=== PATIENT | male | born 1985 | race American Indian/Alaskan Native ===

== ENCOUNTER 2016-03-28 19:25 | Emergency (ER) | payer OTHER ==
--- NOTE | 2016-03-28 20:16 | Emergency Department Report ---
Chief Complaint: Allergic Reaction Stated Complaint: SWOLLEN LIPS, HIVES Time Seen by Provider: 03/28/16 20:11 - HPI History of Present Illness: Patient is a 30 y/o male who presents due to upper lip swelling x 4 hours and hives x 4 days. Patient denies any SOB. Patient denies any insect bite, he states that he ate [employer] for lunch but had eaten [employer] in the past. Patient states that he took Benadryl last night for the hives. NKDA - ROS Review of Systems: SEE HPI - Exam Vital Signs: Vital Signs 03/28/16 20:04 Temperature 98.3 F Pulse Rate 71 Blood Pressure 146/105 O2 Sat by Pulse 100 Oximetry Physical Exam: UPPER LIP SWELLING, WHELPS ON ARM, HANDS AND LEGS. MSE screening note: Focused history and physical exam performed. Due to findings the following was ordered: ED Disposition for MSE Condition: Stable
[2016-03-28] MEDS ORDERED: BENADRYL IV ONE (20:49)
[2016-03-28] MEDS ORDERED: PEPCID IV ONE (20:49)
--- NOTE | 2016-03-28 20:52 | Emergency Department Report ---
HPI - General Chief Complaint: Allergic Reaction Time Seen by Provider: 03/28/16 20:48 - HPI HPI: This is a 30-year-old Afro-[place] male who presents to the emergency department with complaint of a probable allergic reaction. The patient has been having some rash that appears consistent with urticaria that has been going on for the past 4-5 days, and then today the patient began having swelling of his upper lip that is worse on the right side. He denies any involvement of the tongue or throat. He is taken 1 dose of Benadryl each day since the rash began. The hives have been on the legs and arms but do not involve the abdomen or chest or back. He is unsure of any particular etiology but says it could have been new detergent. He has a primary care in [place]. No recent significant travel or sick contacts at home. He denies any past medical history. ED Past Medical Hx - Past Medical History Previous Medical History?: No - Surgical History Past Surgical History?: Yes Additional Surgical History: surgery to left leg - Medications Home Medications: Home Medications Medication Instructions Recorded Confirmed Last Taken Type Famotidine [Pepcid] 20 mg PO BID #10 tablet 03/28/16 Unknown Rx predniSONE [Deltasone] 20 mg PO BID #10 tablet 03/28/16 Unknown Rx ED Review of Systems ROS: Stated complaint: SWOLLEN LIPS, HIVES Other details as noted in HPI Comment: All other systems reviewed and negative Constitutional: denies: chills, fever Eyes: denies: eye pain, eye discharge, vision change ENT: other (angioedema of the lip). denies: ear pain, throat pain Respiratory: denies: cough, shortness of breath, wheezing Cardiovascular: denies: chest pain, palpitations Gastrointestinal: denies: abdominal pain, nausea, diarrhea Genitourinary: denies: urgency, dysuria Musculoskeletal: denies: back pain, joint swelling, arthralgia Skin: rash, lesions Neurological: denies: headache, weakness, paresthesias Physical Exam - Physical Exam Vital Signs: Vital Signs 03/28/16 20:04 Temperature 98.3 F Pulse Rate 71 Blood Pressure 146/105 O2 Sat by Pulse 100 Oximetry Physical Exam: GENERAL: The patient is well-developed well-nourished. HEENT: Normocephalic. Atraumatic. Extraocular motions are intact. Patient has moist mucous membranes. Pupils equal reactive to light bilaterally. Trach is midline. Oropharynx clear. Patient has some mild angioedema involving the upper lip that is worse on the right side. There is no involvement of the oropharynx or tongue. No drooling or trismus. NECK: Supple. Trachea is midline. CHEST/LUNGS: Clear to auscultation. There is no respiratory distress noted. HEART/CARDIOVASCULAR: Regular. There is no tachycardia. There is no gallop rub or murmur. ABDOMEN: Abdomen is soft, nontender. Patient has normal bowel sounds. There is no abdominal distention. SKIN: The patient has a few intermittent localized urticarial lesions. NEURO: The patient is awake, alert, and oriented. The patient is cooperative. The patient has no focal neurologic deficits. The patient has normal speech. MUSCULOSKELETAL: There is no tenderness or deformity. There is no limitation range of motion. There is no evidence of acute injury. ED Course Vital Signs 03/28/16 20:04 Temperature 98.3 F Pulse Rate 71 Blood Pressure 146/105 O2 Sat by Pulse 100 Oximetry ED Medical Decision Making - Medical Decision Making 30-year-old male presents with what appears to be an allergic reaction. He is not on any medications that could've been the etiology. Etiology is unknown at this time. He has been reevaluated multiple times over the 3 and half hours that he has been in the emergency department. He was given steroids, Pepcid and Benadryl. Prior to this discharge he has shown improvement. The size of the lips has decreased and the amount of urticarial lesions has also decreased. He appears safe for discharge home at this time. He understands that exposure to the allergen may worsen or cause the symptoms to recur. If there is any involvement of the lower lip, tongue or throat he will call 911 immediately. Otherwise she will go home with a 5 day course of steroids, Pepcid and will crab picker [id number] Benadryl. He'll be given referrals for primary care doctors in this area. He will return to the ER with any acute distress. - Differential Diagnosis allergic reaction, angioedema, dermatitis, complement deficiency Critical Care Time: No Critical care attestation.: If time is entered above; I have spent that time in minutes in the direct care of this critically ill patient, excluding procedure time. ED Disposition Clinical Impression: Allergic reaction Qualifiers: Encounter type: initial encounter Qualified Code(s): T78.40XA - Allergy, unspecified, initial encounter Angioedema Qualifiers: Encounter type: initial encounter Qualified Code(s): T78.3XXA - Angioneurotic edema, initial encounter Disposition: DISCHARGED TO HOME OR SELFCARE Is pt being admited?: No Does the pt Need Aspirin: No Condition: Good Instructions: Urticaria (ED), Angioedema (ED) Additional Instructions: Please follow-up with a primary care doctor in the next few days. Take the steroids and Pepcid as prescribed. director of occupational health [id number] Benadryl to take as needed for itching and/or allergic reaction. Return to the emergency department with any worsening of your symptoms or any acute distress. If there is any involvement of the tongue or throat, call 911 immediately. Prescriptions: predniSONE [Deltasone] 20 mg PO BID #10 tablet Famotidine [Pepcid] 20 mg PO BID #10 tablet Referrals: PRIMARY MD ABI [Primary Care Provider] - 3-5 Days DIGNA NUNEZ MD [Staff Physician] - 3-5 Days NÉSTOR CHOWDHURY MD [Staff Physician] - 3-5 Days [facility] [Outside] - 3-5 Days Time of Disposition: 23:06
[2016-03-28 23:02] VITALS: BP 149/98
== END 2016-03-28 23:32 | disposition home or self-care (01) ==
LOC: ED 19:25
DX: T78.3XXA Angioneurotic edema, initial encounter (principal)
CPT/HCPCS: 96374; 96375; 99282; J1200; J2930